=== PATIENT | male | born 1955 | race American Indian/Alaskan Native ===

== ENCOUNTER 2018-08-15 12:04 | Day surgery (SDC) | payer MEDICARE ==
[~2018-08-15 12:04] MED LIST: NACL 0.9% 1000 ML 1,000 ML IV SCH
--- NOTE | 2018-08-15 14:22 | Anesthesia Consultation ---
Anesthesia Consult and Med Hx Date of service: 08/15/18 - Airway Anesthetic Teeth Evaluation: Good ROM Head & Neck: Adequate Mental/Hyoid Distance: Adequate Mallampati Class: Class I Intubation Access Assessment: Good - Pulmonary Exam CTA: Yes - Cardiac Exam Cardiac Exam: RRR - Pre-Operative Health Status ASA Pre-Surgery Classification: ASA3 Proposed Anesthetic Plan: MAC - Cardiovascular System Hx Hypertension: Yes - Central Nervous System CVA: Yes
--- NOTE | 2018-08-15 14:23 | Anesthesia Day of Surgery ---
Anesthesia Day of Surgery - Day of Surgery Patient Examined: Yes Patient H&P Reviewed: Yes Patient is NPO: Yes Beta Blockers: No Cardiac Clearance: No Pulmonary Clearance: No
[2018-08-15] MEDS ORDERED: WATER FOR IRRIG STERILE ONE (16:11)
[2018-08-15] MEDS ORDERED: WATER FOR IRRIG STERILE IR ONE (16:11)
[2018-08-15] MEDS ORDERED: DIPRIVAN 10 MG/ML IV ONE ×2 (16:13)
--- NOTE | 2018-08-15 16:51 | Discharge Summary ---
Short Stay Discharge Plan Activity: advance as tolerated Weight Bearing Status: Weight Bear as Tolerated Diet: regular Follow up with: ALEXANDRE SANCHEZ MD [Primary Care Provider] - 7 Days
--- NOTE | 2018-08-15 16:51 | Operative Report ---
Operative Report Operative Report: Date of procedure: 08/15/2018 Procedure: Colonoscopy with Multiple Hot Biopsy Polypectomies. Attending physician: Stef Sultana M.D. Vessel Traffic Officer: Stef Sultana M.D. Indication: Patient is a 63-year-old male who presents for screening colonoscopy. This colonoscopy serves to evaluate patient so that treatment may be directed based on the findings. Consent: Informed consent was obtained after advising the patient and family regarding nature of this procedure, its indications, potential benefits as well as possible complications including but not limited to bleeding perforation and adverse reaction to medication, infection as well as other cardiopulmonary complications. An informed written and verbal consent was then obtained after due opportunity was provided for questions and answers. Monitoring: Patient was monitored continuously with pulse oximetry and electrocardiographic recordings as well as blood pressure recordings. Vital signs remained stable throughout this procedure with no untoward events. Preoperative assessment: Patient was assessed immediately prior to this procedure for capacity to tolerate monitored anesthesia care and moderate sedation as well as general anesthesia. Patient's ASA classification is 2, Mallampati class is 2, Hyomental distance is 3. Instrument: E-Sign video colonoscope. Medications: Propofol given intravenously in divided doses. For details please refer to anesthesia records. Description of procedure: Patient was placed in the left lateral decubitus position after achieving sedation, a digital rectal examination was performed following which the colonoscope was introduced into the anal verge and advanced to the cecum which was identified by the cecal valve, the appendiceal orifice, as well as by the cecal strap and direct transillumination. The colonoscope was subsequently withdrawn with careful inspection of all mucosal surfaces. Patient tolerated this procedure well and was subsequently taken to the recovery room. The following findings were noted. Findings: Patient had substantial retained thick liquid stool seen in various sections of the colon. There was a sessile 6-7 mm polyp in the proximal ascending colon which is removed by hot biopsy polypectomy and retrieved. The rest of the colon to the cecum was grossly normal. On the retroflex view at the anal verge, patient had internal hemorrhoids. Impression: Ascending colon colon polyp status post hot biopsy polypectomy. Internal hemorrhoids. Retained stool. Plan: Follow pathology report. High-fiber diet. Repeat colonoscopy in 1 year due to retained stool.
[2018-08-15 17:12] VITALS: BP 120/83
== END 2018-08-15 17:36 | disposition home or self-care (01) ==
LOC: GIO 12:04
PROVIDERS: ATTEND Internal Medicine Gastroenterology
DX: Z12.11 Encounter for screening for malignant neoplasm of colon (principal); D12.2 Benign neoplasm of ascending colon; K64.8 Other hemorrhoids; E78.00 Pure hypercholesterolemia, unspecified; I10 Essential (primary) hypertension; Z79.899 Other long term (current) drug therapy; Z79.82 Long term (current) use of aspirin; Z86.73 Personal history of transient ischemic attack (TIA), and cerebral infarction without residual deficits
CPT/HCPCS: 45384; 88305; J2704; J7030